=== PATIENT | female | born 1960 | race Caucasian/White ===

== ENCOUNTER → 2017-10-28 | Outpatient (REF) | payer OTHER | LOC: M SFHCWAGY 09:38 | DX: Z12.4 Encounter for screening for malignant neoplasm of cervix (principal) | CPT/HCPCS: 88142 ==

== ENCOUNTER → 2020-11-03 | Outpatient (CLI) | payer SELFPAY | LOC: M LABSMTC 13:51 | PROVIDERS: ATTEND Pediatrics | DX: Z20.822 Contact with and (suspected) exposure to COVID-19 (principal) ==